=== PATIENT | male | born 1965 | race Caucasian/White ===

== ENCOUNTER 2020-09-21 19:25 | Emergency (ER) | payer OTHER, SELFPAY ==
[2020-09-21 19:56] VITALS: BP 153/85; PULSE 86; RESP 18; TEMP 36.3; O2SAT 96; BMI 31.7
--- NOTE | 2020-09-21 20:26 | ED.BACK ---
HPI - Back Pain/Injury General Chief Complaint: Back Pain/Injury Stated Complaint: HIP PAIN Time Seen by Provider: 09/21/20 20:16 History of Present Illness HPI Narrative: Patient complains of right-sided back pain radiating to the groin area which happened several days ago at work on Sunday when he was lifting heavy objects at work and felt a pain in the right side of his back which has gotten worse over the last several days No numbness weakness or tingling no incontinence no fever no dysuria no blood in the urine no abdominal pain no chest pain Related Data Previous Rx's Medication Instructions Recorded acetaminophen 1,000 mg PO QID PRN #30 tab 09/21/20 cyclobenzaprine 10 mg PO TID PRN #14 tab 09/21/20 ibuprofen 600 mg PO Q6H PRN #20 tab 09/21/20 lidocaine 1 patch TOPICAL DAILY #15 ea 09/21/20 oxycodone 5 mg PO Q6H PRN #14 tab 09/21/20 prednisone 60 mg PO DAILY 3 Days #9 tab 09/21/20 Allergies Allergy/AdvReac Type Severity Reaction Status Date / Time No Known Allergies Allergy Verified 09/21/20 19:55 [No Known Allergies*] Review of Systems Review of Systems: Positive for right-sided back pain radiating to the groin Negatives are no fever no chills any dizziness or weakness no fainting no feeling faint no chest pain no abdominal pain no burning with urination or frequency of urination no incontinence no changes to bowel or bladder no skin rash no numbness weakness or tingling Yes all other systems are reviewed and are negative PMFSH Past Medical History Source: nursing notes reviewed Social History Social History Advance Directives: No Physical Exam Vital Signs: Vital Signs: Last Vital Signs Temp 97.3 F 09/21/20 19:56 Pulse 81 09/21/20 21:08 Resp 14 09/21/20 21:08 BP 124/85 09/21/20 21:08 Pulse Ox 98 09/21/20 21:08 Body Mass Index 31.7 General appearance is no acute distress Head is normocephalic atraumatic Neck is supple and nontender The chest is clear to auscultation bilaterally Heart no murmur Abdomen soft nontender Extremities full range of motion x4 Back exam there is right lower lumbar paraspinal tenderness, there is no CVA tenderness there is no focal bony tenderness, all skin is normal there is no redness no warmth no swelling no wound no rash Pain is easily reproduced with movement Neuro no focal motor or sensory deficit Skin no rash Course Course Course Narrative: Patient is treated for musculoskeletal back pain that started with an injury at work and will follow with work connection or primary doctor Discharge Plan Discharge Clinical Impression: Strain of lumbar region Patient Disposition: Home, Self-Care Additional Instructions: Follow with work connection for work related injury Chiropractor and or physical therapy are often helpful, massages often help We are trying prednisone which helps sometimes with pinch nerve pain that radiates to other parts of the body by reducing inflammation Return any time any worse condition or any concerns Prescriptions: New oxycodone 5 mg tablet 5 mg PO Q6H PRN (Reason: pain) Qty: 14 RF: 0 prednisone 20 mg tablet 60 mg PO DAILY 3 Days Qty: 9 RF: 0 lidocaine 5 % adhesive patch,medicated 1 patch topical DAILY Qty: 15 RF: 0 acetaminophen 500 mg tablet 1,000 mg PO QID PRN (Reason: pain) Qty: 30 RF: 0 ibuprofen 600 mg tablet 600 mg PO Q6H PRN (Reason: pain) Qty: 20 RF: 0 cyclobenzaprine 5 mg tablet 10 mg PO TID PRN (Reason: muscle spasm) Qty: 14 RF: 0 Referrals: [facility] [Provider Group] - 2 days (Back injury from lifting at work) Stand Alone Forms: Work/School Release Interventions: ED Discharge Assessment Last Done: 09/21/20 21:18 Discharge Date/Time: 09/21/20 21:21
[2020-09-21] MEDS: Acetaminophen 325 MG TABLET 975 MG PO (20:46)
[2020-09-21] MEDS: oxyCODONE HCl Immed Release 5 MG TABLET 10 MG PO (20:46)
[2020-09-21] MEDS: Cyclobenzaprine HCl 10 MG TABLET PO (20:47)
[2020-09-21] MEDS: predniSONE 20 MG TABLET 60 MG PO (20:47)
[2020-09-21] MEDS: Ketorolac Tromethamine 30 MG/ML VIAL IM (20:47)
[2020-09-21 21:08] VITALS: BP 124/85; PULSE 81; RESP 14; O2SAT 98
== END 2020-09-21 21:21 | disposition home or self-care (01) ==
PROVIDERS: Emergency Provider Emergency Medicine
DX: S39.012A Strain of muscle, fascia and tendon of lower back, initial encounter (principal); X50.0XXA Overexertion from strenuous movement or load, initial encounter; Y93.9 Activity, unspecified; Y92.89 Other specified places as the place of occurrence of the external cause; Y99.0 Civilian activity done for income or pay
CPT/HCPCS: 96372; 99284; J1885

== ENCOUNTER 2021-05-04 09:06 | Outpatient (REF) | payer OTHER, SELFPAY ==
--- NOTE | ~2021-05-04 | XR_ITS ---
EXAMINATION: XR KNEE, LEFT CLINICAL INFORMATION: Left knee pain COMPARISON: None TECHNIQUE: Four views of the left knee. FINDINGS: There is no evidence of acute fracture or dislocation of the left knee. No significant left knee effusion is appreciated. Joint spaces are maintained. There is some spurring undersurface of the patella. There is a patella spur site of insertion of the quadriceps tendon. XR/XR knee LT 4V IMPRESSION: Mild degenerative change of the patellofemoral joint. No acute fracture, dislocation, or effusion identified.
== END 2021-05-04 09:07 | disposition home or self-care (01) ==
LOC: HO.HMGCX 09:06
PROVIDERS: Visit Provider Family Medicine
DX: M25.562 Pain in left knee (principal)
CPT/HCPCS: 73564

== ENCOUNTER 2021-06-20 17:00 | Outpatient (RCR) | payer OTHER, SELFPAY ==
[2021-05-11 10:09] VITALS: BP 118/80; PULSE 87
--- NOTE | 2021-05-11 12:02 | MHC.PT.EP ---
[facility] [place] Office [place] Office [place] Office [address] Kyle Lezama [address] [phone] F: [phone] F: [phone] F: [phone] F: [phone] Physical Therapy Plan of Care Date of Evaluation: Date of Surgery: NA Diagnosis: Sprain of unspecified site of L knee, initial encounter Assessment: Osbaldo is a 55 year old male who is referred to PT for Sprain of unspecified site of L knee, initial encounter . Pt sustained the injury at work about 10 days back, twisted his knee on planted foot. On PT examination he presented with mild swelling, TTP along inferior border of patella, 6/10 pain with stairs, walking, knee bending, and standing, decreased knee ROM, decreased knee and hip muscle strength, altered posture, balance and gait. Due to these impairments he has difficulty dressing his lower body, walking, stair negotiation and performing work activities. He would benefit from skilled PT to address the aforementioned impairments and improve tolerance to functional activities. Frequency and Duration: The patient will be seen 2/week for 5 weeks. Short Term Goals: 1. Pt will have 50% decrease in pain which will enable him to stand to clean dishes in 2 weeks. 2. Pt will be able to move knee through full plane of motion without pain which will enable him to dress his lower body in 3 weeks Fdc Goals: 1. Pt will demonstrate an increase in muscle strength by 1 grade which will enable to to walk and negotiate stairs in 4 weeks. 2. Pt will be independent with HEP and return to PLOF in 5 weeks. Treatment Plan: Modalities to reduce pain, spasms and effusion. Manual therapy to restore motion and function. Therapeutic exercise to improve strength and flexibility. Neuromuscular re-education for posture and balance. Therapeutic activities to return to functional activities of daily living. Electronically signed by: Maribel Aldridge PT DPT Please sign and return to therapist. Thank you for your referral.
--- NOTE | 2021-06-21 15:41 | MHC.PT.DC ---
[facility] [place] Office [place] Office [place] Office [address] Kyle Lezama [address] [phone] F: [phone] F: [phone] F: [phone] F: [phone] Physical Therapy Discharge Report Diagnosis: Sprain of unspecified site of L knee, initial encounter Date of Surgery: NA Date of Evaluation: 05/11/21 Date of Discharge: 06/21/21 Treatments to Date: 10 Cancellations to Date: 0 No Shows to Date: 0 Discharge Status: Improved Function Independent with HEP Discharge Summary: Osbaldo has completed 10 PT visits and has shown improvement in his symptoms. He is independent with HEP as well. He is therefore being d/c from PT. Electronically signed by: Maribel Aldridge PT DPT Please sign and return to therapist. Thank you for your referral.
== END 2021-06-21 15:43 | disposition home or self-care (01) ==
LOC: HO.PT 17:00
PROVIDERS: Visit Provider Family Medicine
DX: S83.92XD Sprain of unspecified site of left knee, subsequent encounter (principal)
CPT/HCPCS: 97110; 97112; 97140; 97161; 97530

== ENCOUNTER 2023-06-13 08:07 | Outpatient (AMB) | payer OTHER, SELFPAY ==
[2023-06-13 08:22] VITALS: BP 122/76; PULSE 78; TEMP 36.7; O2SAT 98; BMI 31.2
--- NOTE | 2023-06-13 08:25 | MHC.OFFWIV ---
Intake Vital Signs 06/13/23 08:22 Height 5 ft 9 in Weight 211 lb BMI 31.2 BP 122/76 Blood Pressure Location Lt brachial Position Sitting Pulse 78 Pulse Source Pulse Oximeter Temp 98.0 F Temp Source Oral Pulse Oximetry (%) 98 Intake Visit Reasons: EP Rash Intake Note: pt is here for c/o rash under left arm/chest, spread to back. pt states hes had it for 2 days, states its itchy Patient Tobacco Use Status: Never used Tobacco Allergies No Known Allergies [No Known Allergies*] Allergy (Verified 06/13/23 08:24) HPI HPI Comments History of Present Illness Details 57 y/o male patient who presents to walk in clinic with c/o Rash x 2 days. Reports that rash is located left sided chest spreading to the mid back. Reports that rash is Itchy, and painful. PFSH Surgical History (Updated 05/04/21 @ 08:10 by Karly Feliciano CMA) H/O shoulder surgery Family History (Updated 05/04/21 @ 08:11 by Karly Feliciano CMA) Father Lung cancer Mother Lung cancer Social History (Updated 05/04/21 @ 08:11 by Karly Feliciano CMA) Household Members: Spouse Housing: House Alcohol intake: current Alcohol intake frequency: a few times a week Alcohol type: beer Patient Tobacco Use Status: Never used Tobacco Review of Systems Const All systems reviewed & are unremarkable except as noted in HPI and below Physical Exam Vital Signs: Last Vital Signs Temp 98.0 F 06/13/23 08:22 Pulse 78 06/13/23 08:22 BP 122/76 06/13/23 08:22 Pulse Ox 98 06/13/23 08:22 BMI result Body Mass Index 31.2 Const General: comfortable and no acute distress Orientation/consciousness: patient oriented x3 Skin General skin exam: erythema Rashes: rashes noted (Small vesicles on the left sided trunk along a thoracic dermatome, erythema) Neuro General: patient oriented x3, gait normal and moves all extremities Psych Affect: normal affect Attitude: cooperative Assessment & Plan Assessment & Plan (1) Rash: Code(s): R21 - Rash and other nonspecific skin eruption Plan: DDx's: Shingles vs Dermatitis Will Tx with Valtrex today. Exam consistent with Shingles. Medications: New valacyclovir (Valtrex) 1,000 mg PO BID 7 days 14 tabs 0RF R21 - Rash and other nonspecific skin eruption Coding Level of Care Code Est Pt Level 3 (60500) Diagnoses Rash R21 Time Spent (min) 15
== END 2023-06-13 08:38 | disposition home or self-care (01) ==
PROVIDERS: Visit Provider Nurse Practitioner Family
DX: R21 Rash and other nonspecific skin eruption (principal)
CPT/HCPCS: 99213

== ENCOUNTER 2024-02-11 17:34 | Day surgery (SDC) | payer OTHER, SELFPAY ==
--- NOTE | ~2024-02-11 | FL_ITS ---
EXAMINATION: FLUOROSCOPY GUIDANCE FOR NEEDLE PLACEMENT CLINICAL INFORMATION: Left stent COMPARISON: None available. TECHNIQUE: Fluoroscopy and digital spot fluoroscopy. FINDINGS: Digital spot images demonstrate sequential images with deployment of a left nephroureteral stent. Partial visualization is made of contrast within the left ureter. FLUOROSCOPY TIME: 52.8 seconds DOSE 21.30 mGY FL/FL guidance in OR IMPRESSION: Intraprocedural fluoroscopic visualization as detailed above. Electronically signed by: José Manuel Briceño MD 02/13/2024 04:42 AM MIGUELITO LER[facility]
--- NOTE | ~2024-02-11 | CT_ITS ---
EXAMINATION: CT LUMBAR SPINE WITHOUT CONTRAST CLINICAL INFORMATION: Low back pain. COMPARISON: CT abdomen/pelvis 03/05/2016. TECHNIQUE: Contiguous axial imaging was performed of the lumbar spine without intravenous administration of contrast. Coronal and sagittal reformats were obtained at the acquisition workstation. This CT examination was performed using dose optimization techniques as appropriate, variously including the following: *Automated exposure control *Adjustment of mA and/or kV according to patient size (this includes techniques or standardized protocols for targeted exams where dose is matched to indication/reason for exam; i.e. extremities or head) *Use of iterative reconstruction technique DLP; 565 mGy-cm FINDINGS: No acute compression deformity or subluxation. No aggressive appearing osseous lesions. Mild to moderate multilevel intervertebral disc height loss and mild multilevel facet arthropathy with some degree of neural foraminal encroachment at the L4-S1 levels. [id number] diffuse central spinal canal stenosis. Of note, CT is insensitive for evaluation of the spinal canal in the absence of intrathecal contrast. SI joints are symmetric. No significant paraspinal soft tissue abnormality is seen. Incidentally noted moderate left-sided hydroureteronephrosis with a 5 x 3 mm obstructive ureteric calculus at the level of L4 measuring 6 cm 79 Hounsfield units. Additional nonobstructive calculus measuring 6 mm in the lower pole of the left kidney. CT/CT lumbar spine wo IV con IMPRESSION: 1. Moderate left-sided hydroureteronephrosis with a 5 x 3 mm obstructive ureteric calculus at the level of L4. Additional nonobstructive calculus in the lower pole of the left kidney. 2. No acute compression deformity or subluxation. 3. Mild to moderate multilevel degenerative changes of the lumbar spine. Electronically signed by: Calista Abdul MD 02/11/2024 09:32 PM [facility] [place]
[2024-02-11 18:11] VITALS: BP 146/95; PULSE 81; RESP 20; TEMP 37.2; O2SAT 96; BMI 30.3
--- NOTE | 2024-02-11 18:22 | ED_ITS ---
HPI - General Adult General Chief complaint: Abdominal Pain Stated complaint: back pain Time Seen by Provider: 02/11/24 19:11 Source: patient Mode of arrival: ambulatory Limitations: no limitations History of Present Illness ED Provider: preet painter NP HPI narrative: Patient is a 58-year-old male who presents emergency department for evaluation of left-sided back pain. Onset around approximately 17:30, has progressively worsened. He was attempting to get out of his truck after a drive home about 40 minutes prior to arrival to emergency department and he felt the pain becoming more excruciating. He has vomited twice since the onset of pain and arrived diaphoretic. He appears significantly uncomfortable at the time my evaluation. He does admit to a history of kidney stones but states that this feels more severe than he has experienced in the past. Denies recent precipitating injury, fevers, chills, chest pain, shortness of breath, burning with micturition, urinary frequency/urgency/hesitancy, hematuria, bladder or bowel dysfunction, numbness or tingling of the perineum or bilateral legs. Denies any recent surgical procedures, any known immune compromising conditions, personal history of cancer, or IV drug usage. Related Data Previous Rx's ?Medication ?Instructions ?Recorded acetaminophen 500 mg tablet 1,000 mg (2 x 500 mg) PO QID PRN 09/21/20 pain #30 tabs ibuprofen 600 mg tablet 600 mg PO Q6H PRN pain #20 tabs 05/04/21 valacyclovir 1 gram tablet 1,000 mg PO BID 7 days #14 tabs 06/13/23 (Valtrex) Allergies Allergy/AdvReac Type Severity Reaction Status Date / Time No Known Allergies Allergy Verified 02/11/24 18:13 [No Known Allergies*] Review of Systems 2 Review of Systems: Yes all other systems are reviewed and are negative PMFSH Past Medical History Attestation statement: The following information was validated with the patient. Source: old records reviewed Surgical History H/O shoulder surgery Family History Family History (Updated 05/04/21 @ 08:11 by Karly Feliciano CMA) Father Lung cancer Mother Lung cancer Social History Social History (Updated 05/04/21 @ 08:11 by Karly Feliciano, AUTOMOTIVE SALES SPECIALIST) Household Members: Spouse Housing: House Are you a primary in home caregiver to a significant other at home: No Do you presently have visiting nurse or other home services: No Alcohol intake: current Alcohol intake frequency: a few times a week Alcohol type: beer Comment: PACU Patient Tobacco Use Status: Never used Tobacco Physical Exam ED Vital Signs: Vital Signs - 24 hr 02/11/24 18:11 02/11/24 19:58 02/11/24 20:09 Temperature 98.9 F 98.3 F Pulse Rate 81 75 Respiratory Rate 20 22 H 16 Blood Pressure 146/95 H 145/102 H Pulse Oximetry 96 96 Oxygen Delivery Method Room Air Room Air 02/11/24 22:35 02/12/24 05:31 02/12/24 08:00 Temperature 98.0 F 98.0 F 98.1 F Pulse Rate 78 98 83 Respiratory Rate 16 16 16 Blood Pressure 120/78 105/46 L 117/75 Pulse Oximetry 97 94 97 Oxygen Delivery Method Room Air Room Air Room Air 02/12/24 15:05 Temperature 98.8 F Pulse Rate 89 Respiratory Rate 14 Blood Pressure 126/79 Pulse Oximetry 96 Oxygen Delivery Method Room Air BMI result Body Mass Index 30.3 Appearance: Alert.?Oriented to person, place and time. No acute distress.?Normal affect. Eyes: Pupils equal, round and reactive to light.? ENT: Pharynx normal.?? Neck: Normal inspection.? Neck supple.?? CVS: Heart sounds normal. Normal heart rate and rhythm.? Pulses normal; bilateral radial pulses 2+, bilateral posterior tibial/dorsalis pedis pulses 2+.? Respiratory: No respiratory distress.? Lung sounds clear to auscultation bilaterally?? Abdomen: Soft and non-tender. Normoactive bowel sounds. No pulsatile mass.?? Skin: Skin warm and dry.? Normal skin color.? Normal skin turgor.?? Extremities: No lower extremity edema.? No calf ttp? Back: Positive left CVA tenderness. No midline spinal tenderness, step-off's, or deformity. Full ROM intact in bilateral lower extremities. No rashes, lesions, areas of induration or fluctuance, or signs of infection noted., Neuro: Moves all extremities spontaneously. 5/5 strength in hip extension/flexion, abduction, adduction. Sensation to light touch intact bilaterally. Patellar and Achilles reflex 2+ bilaterally. No ataxia, gait normal and steady.. No focal neuro deficits. Course Course Course Narrative: RME performed by Shirley Zacarias PA-C. Patient is a 58 year old assigned male at presenting to the emergency department with severe low back pain. Detailed physical exam and review of systems are deferred to the triage clinician. Labs and imaging ordered. Patient placed back in the waiting room pending room availability and results. Reevaluation(s) Reevaluation #1: CT of the abdomen and pelvis revealing a 5 X 3 obstructive ureteral calculi on the left with moderate hydroureternephrosis as well as a 6 mm nonobstructive calculus in the lower pole of the left kidney. These findings were discussed with patient. Still has not had significant resolution in pain though he did endorse some improvement after initial dose morphine. At this time will provide a 2nd dose of morphine in addition to Toradol, starting on Flomax. Time: 21:51 Reevaluation #2: Patient was up and ambulatory, tolerating oral intake. Ambulated to the bathroom provided a urinalysis which is without evidence of infection. Reports improvement in pain Time: 00:00 Reevaluation #3: Endorsing increasing in in pain, having worsening intensity, wants to avoid additional dose of medication at this time. He does not feel as though he can return home due to the degree of pain. With any movement he is very uncomfortable. I will consult with Urology Time: 00:27 Additional Reevaluation(s): 01:02 Spoke with Urology, Dr. Judd, he advises that he will evaluate patient in the morning. Patient placed in physician observation at 01:02 pending evaluation from Urology. Vital signs stable. Patient aware of plan of care. Patient signed out to ED attending Dr. Prabhakar Medications Administered Generic Name Dose Route Start Last Admin Trade Name Freq PRN Reason Stop Dose Admin Lactated Ringer's 1,000 mls @ 50 mls/hr 02/12/24 15:30 02/12/24 15:24 Lr IVCONT 50 mls/hr .Q20H CARON Administration Discontinued Medications Generic Name Dose Route Start Last Admin Trade Name Freq PRN Reason Stop Dose Admin Ketorolac Tromethamine 15 mg 02/11/24 21:51 02/11/24 22:05 Ketorolac Tromethamine 15 Mg/Ml Vial IVPUSH 02/11/24 21:52 15 mg ONCE ONE Administration Morphine Sulfate 4 mg 02/11/24 19:21 02/11/24 19:58 Morphine Sulfate 4 Mg/Ml Cartridge IVPUSH 02/11/24 19:22 4 mg ONCE ONE Administration Protocol Morphine Sulfate 4 mg 02/11/24 21:51 02/11/24 22:05 Morphine Sulfate 4 Mg/Ml Cartridge IVPUSH 02/11/24 21:52 4 mg ONCE ONE Administration Protocol Ondansetron HCl 4 mg 02/11/24 19:21 02/11/24 19:58 Ondansetron Hcl 4 Mg/2 Ml Vial IVPUSH 02/11/24 19:22 4 mg ONCE ONE Administration Tamsulosin HCl 0.4 mg 02/11/24 21:58 02/11/24 22:05 Tamsulosin Hcl 0.4 Mg Capsule PO 02/11/24 21:59 0.4 mg ONCE ONE Administration Medical Decision Making Medical Decision Making [facility] Narrative: Patient is a 58-year-old male who presents emergency department for evaluation of left-sided back pain with onset this evening progressively worsening as per HPI. At the time my initial evaluation here significantly uncomfortable, has positive left CVAT no midline pain. Concern at this time for nephrolithiasis/obstructive calculi versus lumbar strain, can not completely exclude herniated disc. On neurological exam there are no deficits. Atraumatic in nature, no acute bony tenderness, unlikely to be spinal fracture. No recent fevers, unintentional weight loss, history of IVDA, high-risk past medical history, immunosuppression, recent surgery or lumbar puncture to suggest spinal infection, epidural abscess, malignancy. Not consistent with AAA or dissection. No radiation of pain to the testicular region to suggest testicular torsion. No associated diarrhea/constipation, hematochezia melena, or left lower quadrant abdominal pain to suggest diverticulitis. CT of the abdomen and pelvis obtained for further evaluation Differential Diagnosis Differential Diagnoses: The differential diagnosis associated with the presentation includes ( see narrative above) Admission/Observation Consideration of admission/observation: Escalation of care including admission/observation considered ( see narrative above) Lab Data [facility] Lab Attestation statement: I reviewed the patient's lab results. CBC without leukocytosis anemia or thrombocytopenia. No electrolyte derangement. No ADRIÁN. Urinalysis without evidence of infection. 02/11/24 18:36 02/11/24 18:36 Labs: Lab Results 02/11/24 02/11/24 Range/Units 18:36 23:46 WBC 9.7 (4.8-10.8) X10*3/uL RBC 4.97 (4.60-5.80) X10*6/uL Hgb 16.0 (14.0-18.0) g/dl Hct 45.3 (42.0-52.0) % MCV 91.1 (80.0-98.0) fL MCH 32.2 (27.0-33.0) pg MCHC 35.3 (31.0-36.0) g/dl RDW 12.4 (11.0-16.0) % Plt Count 184 (160-400) X10*3/uL MPV 9.3 L (9.4-12.4) fL Immature Gran % (Auto) 0.2 (0.0-0.4) % Neut % (Auto) 63.2 (45-73) % Lymph % (Auto) 28.4 (20-40) % Starr % (Auto) 6.3 (2-11) % Eos % (Auto) 1.5 (0-4) % Baso % (Auto) 0.4 (0-2) % Lymph # (Auto) 2.8 (1.2-4.9) X10*3/uL Starr # (Auto) 0.6 (0.1-1.2) X10*3/uL Eos # (Auto) 0.2 (0.0-0.4) X10*3/uL Baso # (Auto) 0.0 (0.0-0.2) X10*3/uL Abs Immat Gran (auto) 0.02 (0.00-0.03) X10*3/uL Absolute Neuts (auto) 6.1 (2.0-8.3) x10*3/uL Absolute Nucleated RBC 0.000 (0.0-0.012) X10*3/uL Nucleated RBC % (auto) 0.0 (0.0-0.2) /100WBC Sodium 142 (135-145) mmol/L Potassium 4.8 (3.3-5.1) mmol/L Chloride 106 (96-108) mmol/L Carbon Dioxide 26 (22-29) mmol/L Anion Gap 15 (12-20) BUN 20 H (9-16) mg/dL Creatinine 1.13 (0.5-1.4) mg/dL Estim Creat Clear Calc 79.7 Estimated GFR > 60 Random Glucose 141 H (60-115) mg/dL Calcium 10.4 H (8.4-10.2) mg/dL Magnesium 2.1 (1.6-2.6) mg/dL Total Bilirubin 0.6 (0.0-1.0) mg/dL AST 35 (5-37) U/L ALT 38 (0-40) U/L Alkaline Phosphatase 46 (39-117) U/L Total Protein 8.0 (6.5-8.0) g/dL Albumin 4.7 (3.5-5.0) g/dL Urine Color Dark Yellow Urine Appearance Clear Urine pH 6.5 (5.0-9.0) Ur Specific [place] 1.025 (1.005-1.025) Urine Protein 30 (1+) H (Neg-Trace) mg/dL Urine Glucose (UA) Negative (Negative) mg/dL Urine Ketones 40 (Negative) mg/dL Urine Blood Large (3+) H (Negative) Urine Nitrite Negative (Negative) Ur Leukocyte Esterase Trace H (Negative) Urine RBC >20 H (0-2) /HPF Urine WBC 0-5 (0-5) /HPF Ur Squamous Epith Cells 0-2 (0-2) /HPF Urine Bacteria None Seen (None Seen) Hyaline Casts 0-2 (0-2) /LPF Independent Interpretation I performed an independent interpretation of an: CT Scan (Left nephrolithiasis/ureteral calculi) Radiology Impression Discussion of test interpretation with radiology: I have reviewed the radiologist's reading. Radiologist Impression: CT/CT lumbar spine wo IV con IMPRESSION: 1. Moderate left-sided hydroureteronephrosis with a 5 x 3 mm obstructive ureteric calculus at the level of L4. Additional nonobstructive calculus in the lower pole of the left kidney. 2. No acute compression deformity or subluxation. 3. Mild to moderate multilevel degenerative changes of the lumbar spine. Independent Historian Clinical information obtained from an independent historian. History obtained from or confirmed by: Spouse External Record Review External record reviewed: Outpatient record Prescription Management I considered prescription management with: Pain Medication Critical Care Time Critical Care Time Critical Care Time: Yes Total Critical Care Time: 45 Attestation: I personally attest to this critical care time spent taking care of the patient exclusive of all other billable procedures was approximately 45 minutes including initial evaluation of patient, ordering tests, CT interpretation, morphine IV and re-evaluation, medical consultation, documentation, re- evaluation. Discharge Plan Discharge Clinical Impression: Hydronephrosis with urinary obstruction due to ureteral calculus Patient Disposition: Still a Patient Prescriptions: No Action acetaminophen 500 mg tablet 1,000 mg PO QID PRN (Reason: pain) Qty: 30 0RF ibuprofen 600 mg tablet 600 mg PO Q6H PRN (Reason: pain) Qty: 20 0RF valacyclovir [Valtrex] 1 gram tablet 1,000 mg PO BID 7 Days Qty: 14 0RF Interventions: Admission Worksheet (ED) Last Done: 02/12/24 14:37 Discharge Date/Time: 02/12/24 14:53 Print Language: Citizen Of [place]
--- NOTE | 2024-02-11 18:25 | ECG_ITS ---
Test Reason : diaphoresis Blood Pressure : / mmHG Vent. Rate : 067 BPM Atrial Rate : 067 BPM P-R Int : 142 ms QRS Dur : 102 ms QT Int : 388 ms P-R-T Axes : 075 -20 053 degrees QTc Int : 409 ms Normal sinus rhythm Normal ECG No previous ECGs available Referred By: Shirley Zacarias Electronically Signed By:Cricket Marquez
[2024-02-11 18:40] LABS: MANUAL DIFF FLAG NO
[2024-02-11 18:43] LABS: Basophils Percent Auto 0.4 % (0-2); Eosinophils Absolute Auto 0.2 X10*3/uL (0.0-0.4); Eosinophils Percent Auto 1.5 % (0-4); Hematocrit 45.3 % (42.0-52.0); Imm Gran Abs Auto 0.02 X10*3/uL (0.00-0.03); Imm Gran Pct Auto 0.2 % (0.0-0.4); Lymphocytes Absolute Auto 2.8 X10*3/uL (1.2-4.9); Lymphocytes Percent Auto 28.4 % (20-40); Mean Corpuscular HGB Conc 35.3 g/dl (31.0-36.0); Mean Corpuscular Hemoglobin 32.2 pg (27.0-33.0); Mean Corpuscular Volume 91.1 fL (80.0-98.0); Mean Platelet Volume 9.3 fL (9.4-12.4); Monocytes Absolute Auto 0.6 X10*3/uL (0.1-1.2); Monocytes Percent Auto 6.3 % (2-11); Neutrophils Absolute Auto 6.1 x10*3/uL (2.0-8.3); Neutrophils Percent Auto 63.2 % (45-73); Platelet Count 184 X10*3/uL (160-400); Red Blood Count 4.97 X10*6/uL (4.60-5.80); Red Cell Distribution Width 12.4 % (11.0-16.0); White Blood Count 9.7 X10*3/uL (4.8-10.8)
[2024-02-11 18:58] LABS: Alanine Aminotransferase 38 U/L (0-40); Albumin Level 4.7 g/dL (3.5-5.0); Alkaline Phosphatase 46 U/L (39-117); Anion Gap 15 (12-20); Aspartate Amino Transferase 35 U/L (5-37); Bilirubin Total 0.6 mg/dL (0.0-1.0); Blood Urea Nitrogen 20 mg/dL (9-16); Calcium 10.4 mg/dL (8.4-10.2); Carbon Dioxide 26 mmol/L (22-29); Chloride 106 mmol/L (96-108); Creatinine Clr Calc Pharmacy 79.7; Estimated Glomerular Filt Rate > 60; Glucose Random 141 mg/dL (60-115); Magnesium 2.1 mg/dL (1.6-2.6); Potassium 4.8 mmol/L (3.3-5.1); Sodium 142 mmol/L (135-145)
[2024-02-11 19:58] VITALS: RESP 22
[2024-02-11] MEDS: ondansetron HCL 4 MG/2 ML VIAL IVPUSH (19:58)
[2024-02-11] MEDS: Morphine Sulfate 4 MG/ML CARTRIDGE IVPUSH ×2 (19:58→22:05)
[2024-02-11 20:09] VITALS: BP 145/102; PULSE 75; RESP 16; TEMP 36.8; O2SAT 96
[2024-02-11] MEDS: Tamsulosin HCL 0.4 MG CAPSULE PO (22:05)
[2024-02-11] MEDS: Ketorolac Tromethamine 15 MG/ML VIAL IVPUSH (22:05)
[2024-02-11 22:35] VITALS: BP 120/78; PULSE 78; RESP 16; TEMP 36.7; O2SAT 97
[2024-02-11 23:55] LABS: Appearance Urine Clear; Color Urine Dark Yellow; Glucose Urine UA Negative (Negative); Leukocyte Esterase Urine Trace (Negative); Nitrite Urine Negative (Negative); PH 6.5 (5.0-9.0); Specific Gravity - Urine 1.025 (1.005-1.025); UMIC TRIGGER UACC YES; Urine Blood Large (3+) (Negative); Urine Ketones 40 mg/dL (Negative); Urine Protein 30 (1+) mg/dL (Neg-Trace)
[2024-02-11 23:57] LABS: Bacteria Urine None Seen (None Seen); Hyaline Casts Urine 0-2 /LPF (0-2); RBC Urine >20 /HPF (0-2); Squamous Epithelial Cell Urine 0-2 /HPF (0-2); WBC Urine 0-5 /HPF (0-5)
[2024-02-12] VITALS (7 sets, daily range): BP systolic 105–149; BP diastolic 46–87; PULSE 83–98; RESP 14–18; TEMP 36.3–37.1; O2SAT 94–98
--- NOTE | 2024-02-12 08:17 | P.CNUR_ITS ---
History of Present Illness Consult details Consult date: 02/12/24 Narrative: CC: Left upper ureteric stone 58yr male Present to ER with left sided flank pain Rapid onset and progressive Pain to 8/10 Associated vomiting and nausea Prior history of stones CT - Moderate left-sided hydroureteronephrosis with a 5 x 3 mm obstructive ureteric calculus at the level of L4 Plan cysto, left stent placement Review of Systems 2 Constitutional: Constitutional: Reports as per HPI and Reports no additional constitutional complaints Cardiovascular: Cardiovascular: Reports as per HPI and Reports no additional cardiovascular complaints Respiratory: Respiratory: Reports as per HPI and Reports no additional respiratory complaints Gastrointestinal: Gastrointestinal: Reports as per HPI and Reports no additional gastrointestinal complaints Genitourinary: Genitourinary: Reports as per HPI Musculoskeletal: Musculoskeletal: Reports no additional musculoskeletal complaints and Reports as per HPI Neurologic: Reports system reviewed and no additional complaints, except as documented and Reports as per HPI PMFSH Family History Family History (Updated 05/04/21 @ 08:11 by Karly Feliciano CMA) Father Lung cancer Mother Lung cancer Surgical History Surgical History H/O shoulder surgery Social History Social History (Updated 05/04/21 @ 08:11 by Karly Feliciano CMA) Household Members: Spouse Housing: House Alcohol intake: current Alcohol intake frequency: holidays/special occasions only Alcohol type: beer Patient Tobacco Use Status: Never used Tobacco Smoked in Last 30 Days: No Use of substances other than those prescribed or required for medical reasons: No Advance Directives: No Advance Directives Information Provided: No Do you have a plan to hurt others: No Plan Meds Allergies Allergy/AdvReac Type Severity Reaction Status Date / Time No Known Allergies Allergy Verified 02/11/24 18:13 [No Known Allergies*] Active Medications: Current Medications Hydromorphone HCl (Hydromorphone Hcl 1 Mg/Ml Syringe) 1 mg IVPUSH Q3H PRN; Protocol PRN Reason: Pain, Severe (Pain Scale 7-10) Physical Exam 2 Vital Signs: Vital Signs: Last Vital Signs Temp 98.1 F 02/12/24 08:00 Pulse 83 02/12/24 08:00 Resp 16 02/12/24 08:00 BP 117/75 02/12/24 08:00 Pulse Ox 97 02/12/24 08:00 O2 Del Method Room Air 02/12/24 08:00 BMI result Body Mass Index 30.3 Const: General: cooperative, healthy appearing, comfortable and no acute distress Orientation/consciousness: patient oriented x3 HEENT: Face and sinus: Yes normal facial exam Mouth: moist mucous membranes Neck: Neck: Yes normal visual inspection, Yes full ROM and Yes trachea midline Chest: Chest palpation & inspection: normal inspection of the chest Resp: Effort & Inspection: normal respiratory effort, able to speak in complete sentences and no respiratory distress GI: Inspection: Yes normal to inspection Back/Spine/Pelvis: Cervical Spine: normal cervical lordosis Thoracic/Lumbar Spine: thoracic and lumbar spine normal to inspection Skin: General skin exam: no rashes or lesions noted Neuro: General: patient oriented x3, tone normal and moves all extremities Extrem: General: Yes normal to inspection and Yes capillary refill normal Results Labs 02/11/24 18:36 02/11/24 18:36 Labs: Abnormal lab results 02/11/24 02/11/24 Range/Units 18:36 23:46 MPV 9.3 L (9.4-12.4) fL BUN 20 H (9-16) mg/dL Random Glucose 141 H (60-115) mg/dL Calcium 10.4 H (8.4-10.2) mg/dL Urine Protein 30 (1+) H (Neg-Trace) mg/dL Urine Blood Large (3+) H (Negative) Ur Leukocyte Esterase Trace H (Negative) Urine RBC >20 H (0-2) /HPF Short CBC 02/11/24 Range/Units 18:36 WBC 9.7 (4.8-10.8) X10*3/uL Hgb 16.0 (14.0-18.0) g/dl Hct 45.3 (42.0-52.0) % Plt Count 184 (160-400) X10*3/uL BMP 02/11/24 18:36 Sodium 142 Potassium 4.8 Chloride 106 Carbon Dioxide 26 BUN 20 H Creatinine 1.13 Calcium 10.4 H Liver Function 02/11/24 Range/Units 18:36 Total Bilirubin 0.6 (0.0-1.0) mg/dL AST 35 (5-37) U/L ALT 38 (0-40) U/L Alkaline Phosphatase 46 (39-117) U/L Albumin 4.7 (3.5-5.0) g/dL Urine 02/11/24 Range/Units 23:46 Urine Color Dark Yellow Urine Appearance Clear Urine pH 6.5 (5.0-9.0) Ur Specific [place] 1.025 (1.005-1.025) Urine Protein 30 (1+) H (Neg-Trace) mg/dL Urine Glucose (UA) Negative (Negative) mg/dL All other labs normal. Assessment and Plan (1) Hydronephrosis with urinary obstruction due to ureteral calculus: Status: Acute Plan Risks, benefits and alternatives to therapy were discussed. These include but are not limited to infection, bleeding, damage to local organs and tissues, need for further interventions. Anesthetic risks regarding cardiac arrhythmia, blood clots, and potential mortality were discussed. The patient understands the typical recovery time and the outpatient nature of the procedure. After consideration of these risks the patient gives full informed consent and they wish to move ahead with the procedure. - cysto with left stent placement Procedures Date of Service Date of Service: 02/12/24
--- NOTE | 2024-02-12 10:26 | PC.NURSE ---
Called to pre-op this morning to find out more information about patient status and no current plan. patient states MD martinez told him 4pm to sx. Will continue to monitor and manage pain.
[2024-02-12] MEDS: Lactated Ringers 1,000 ML 50 ML IVCONT (15:24)
--- NOTE | 2024-02-12 15:38 | P.CONAN_ITS ---
HPI - Anesthesia Eval Consult details Narrative: 58-year-old male presenting for ureteral scope possible stent PMFSH Active Problems Active Problems: All Active Problems Hydronephrosis with urinary obstruction due to ureteral calculus (Acute) Left knee sprain (Acute) Left knee pain (Acute) Family History Family History Father Lung cancer Mother Lung cancer Family history of problems with anesthesia: No Surgical History Surgical History H/O shoulder surgery History of Problems with Anesthesia: No Social History Social History Household Members: Spouse Housing: House Are you a primary child care supervisor to a significant other at home: No Do you presently have visiting nurse or other home services: No Alcohol intake: current Alcohol intake frequency: a few times a week Alcohol type: beer Comment: PACU Patient Tobacco Use Status: Never used Tobacco Meds Allergies Allergy/AdvReac Type Severity Reaction Status Date / Time No Known Allergies Allergy Verified 02/11/24 18:13 [No Known Allergies*] Active Medications: Current Medications Lactated Ringer's (Lr) 1,000 mls @ 50 mls/hr IVCONT .Q20H CARON Last Admin: 02/12/24 15:24 Dose: 50 mls/hr Exam Height,Weight and Vital Signs: Height 5 ft 8 in Weight 199 lb 4.766 oz Last Vital Signs Temp 98.8 F 02/12/24 15:05 Pulse 89 02/12/24 15:05 Resp 14 02/12/24 15:05 BP 126/79 02/12/24 15:05 Pulse Ox 96 02/12/24 15:05 O2 Del Method Room Air 02/12/24 15:05 Pertinent Lab Results Pertinent Lab Results: Laboratory Tests 02/11/24 02/11/24 18:36 23:46 WBC 9.7 RBC 4.97 Hgb 16.0 Hct 45.3 MCV 91.1 MCH 32.2 MCHC 35.3 RDW 12.4 Plt Count 184 MPV 9.3 L Immature Gran % (Auto) 0.2 Neut % (Auto) 63.2 Lymph % (Auto) 28.4 [place] % (Auto) 6.3 Eos % (Auto) 1.5 Baso % (Auto) 0.4 Lymph # (Auto) 2.8 [place] # (Auto) 0.6 Eos # (Auto) 0.2 Baso # (Auto) 0.0 Abs Immat Gran (auto) 0.02 Absolute Neuts (auto) 6.1 Absolute Nucleated RBC 0.000 Nucleated RBC % (auto) 0.0 Sodium 142 Potassium 4.8 Chloride 106 Carbon Dioxide 26 Anion Gap 15 BUN 20 H Creatinine 1.13 Estim Creat Clear Calc 79.7 Estimated GFR > 60 Random Glucose 141 H Calcium 10.4 H Magnesium 2.1 Total Bilirubin 0.6 AST 35 ALT 38 Alkaline Phosphatase 46 Total Protein 8.0 Albumin 4.7 Urine Color Dark Yellow Urine Appearance Clear Urine pH 6.5 Ur Specific [place] 1.025 Urine Protein 30 (1+) H Urine Glucose (UA) Negative Urine Ketones 40 Urine Blood Large (3+) H Urine Nitrite Negative Ur Leukocyte Esterase Trace H Urine RBC >20 H Urine WBC 0-5 Ur Squamous Epith Cells 0-2 Urine Bacteria None Seen Hyaline Casts 0-2 Airway Mallampati Class: II TM Dist: >3cm Neck ROM: Full Loose/Missing/Broken Teeth: No Assessment and Plan Assessment Anesthesia Assessment: Anesthesia Plan Discussed and Chart Reviewed Final Anesthetic Review Family History of Problems with Anesthesia: No History of Problems with Anesthesia: No NPO: Yes ASA Class: I Final Preanesthetic Review: No Changes in Pt Med Stat, Meds/Allgs Chart Reviewed, Consent Obtained/Reviewed and Anes Risks/Benef Reviewed Patient Risk: Low Procedure Risk: Low Anesthetic Plan Anesthetic Plan: GA Disposition: Standard PACU
--- NOTE | 2024-02-12 17:25 | MHC.SHP ---
Pre-Procedural Eval Section A - 24 Hr Update-Section A only Date of Service: 02/12/24 The patient is an INPATIENT: No The patient has been examined within 24 hours of the surgical procedure. The History & Physical has been completed within 30 days and I have reviewed it.: Yes Section B - Complete if H&P > 30 days Chief Complaint: back pain Allergies: Allergies Allergy/AdvReac Type Severity Reaction Status Date / Time No Known Allergies Allergy Verified 02/11/24 18:13 [No Known Allergies*] Plan Diagnosis/Plan: Unchanged I have reviewed the history and physical and performed a pertinent physical examination on my patient. No changes have occurred unless specified. Left ureteral stone. Plan for Cystoscopy, left ureteroscopy, possible laser lithotripsy, possible ureteral stent. Risks discussed included but not limited to, possible need to repeat procedure if stone is not completely fragmented, Irritative voiding symptoms, bladder spasms, urgency, blood in urine. Time Spent With Patient Time: Total time managing care of this patient today ____ minutes.
--- NOTE | 2024-02-12 18:53 | P.OP_ITS ---
Operative Note Operative Note Date of Service: 02/12/24 Narrative: PreOperative Diagnosis:?? Left ureteral stone, left hydronephrosis Post Operative Diagnosis:?? Left ureteral stone, left hydronephrosis Procedure: - Cystoscopy, left retrograde, left ureteroscopy, laser lithotripsy, stent insertion, 6 Brazilian by 22-32 cm Surgeon:?Dr Moe Lopes Anesthesia:? General Procedure: After informed consent was verified the patient was brought to the operating placed on the OR table in supine position.? General Anesthesia was administered per protocol.? The patient was placed in lithotomy position, prepped and draped in the usual sterile fashion.? Safety pause time-out and side of surgery confirmed.? Antibiotics confirmed. 2% lidocaine jelly 10 mL was passed transurethrally. A 22 Brazilian cystoscope was inserted transurethrally, the bulbous urethra was within normal limits. The prostatic urethra was nonobstructive. The bladder was visualized.? Both ureteric orifices were in normal position. An open-ended ureteral catheter was passed into the left ureteral orifice and a retrograde examination was performed. There was a filling defect in the proximal ureter and dilatation of the proximal ureter and renal pelvis and calices. A guidewire was passed through the ureteral catheter into the kidney. The balloon dilator size 12 fr x 4 cm was passed over the guide- wire the balloon was inflated to 10 mmHg and the intramural ureter was dilated for 45 seconds. The balloon was deflated and removed. After removing the balloon dilator a 2nd guidewire was then passed into the kidney to use as a safety. The cystoscope was removed, leaving both guidewires in place. One guidewire was used as the safety and was attached to the draping. The semi rigid ureteroscope was passed over one of the guidewires to the level of the stone in the ureter. One guidewire was then removed. Laser lithotripsy was started of the stone was done using the 220 fiber with a however due to the stone impacted along the ureter, laser lithotripsy was discontinued and a ureteral stent was placed. The ureteroscope was removed. The cystoscope was passed over the safety guidewire. A?6 Brazilian by 22-32 cm stent was placed into the ureter and renal pelvis under a combination of fluoroscopy and direct visualization. The bladder was emptied.? The rigid cystoscope was removed. ? The patient tolerated the procedure well and was brought to the recovery room in stable condition. Complications: None Drains: Ureteral stent as dictated above
[2024-02-12] MEDS: Phenazopyridine HCL 200 MG TABLET PO (19:15)
== END 2024-02-12 19:30 | disposition home or self-care (01) ==
LOC: HO.ED 02-12 14:37 → HO.SSS 02-12 17:17
PROVIDERS: Physician Assistant Medical; Urology; Emergency Provider Emergency Medicine; Visit Provider Urology
PROC: 0TJB8ZZ Inspection of Bladder, Via Natural or Artificial Opening Endoscopic (ICD-10-PCS; CPT 52005; principal; 2024-02-12 16:10)
DX: N13.2 Hydronephrosis with renal and ureteral calculous obstruction (principal)
CPT/HCPCS: 52356; 36415; 72131; 80053; 81001; 83735; 85025; 93005; 96374; 96375; 96376; 99285; C1726; C1758; C1769; C2617; J1885; J1956; J2003; J2270; J2405; J2704; J3010; J7120; Q9967

== ENCOUNTER → 2024-02-11 18:25 | Outpatient (BNV) | payer OTHER, SELFPAY | PROVIDERS: Emergency Provider Emergency Medicine; Visit Provider Internal Medicine Cardiovascular Disease | DX: N13.2 Hydronephrosis with renal and ureteral calculous obstruction (principal) | CPT/HCPCS: 93010 ==

== ENCOUNTER → 2024-02-11 18:47 | Outpatient (BNV) | payer OTHER, SELFPAY | PROVIDERS: Emergency Provider Emergency Medicine; Visit Provider Urology | DX: N20.1 Calculus of ureter (principal); N13.30 Unspecified hydronephrosis | CPT/HCPCS: 52356; 74420; 99284 ==

== ENCOUNTER 2024-03-04 09:25 | Day surgery (SDC) | payer OTHER, SELFPAY ==
--- NOTE | 2024-03-03 12:13 | P.CONAN_ITS ---
Documented by User: Mónica Mccormack NP 03/03/24 12:13 HPI - Anesthesia Eval Consult details Narrative: 58yo M for Left Cystoscopy, Ureteroroscopy, Retro, Laser with stent exchange s/p cysto, pyelogram 02/2024 with GA-LMA 4 PMFSH Active Problems Active Problems: All Active Problems Hydronephrosis with urinary obstruction due to ureteral calculus (Acute) Left knee sprain (Acute) Left knee pain (Acute) Past Medical History Medical History (Updated 03/04/24 @ 09:57 by Rosalia Boogie RN) Kidney stone on left side Family History Family History Father Lung cancer Mother Lung cancer Family history of problems with anesthesia: No Surgical History Surgical History (Updated 03/04/24 @ 11:27 by Rosalia Boogie RN) Hx of cystoscopy H/O shoulder surgery History of Problems with Anesthesia: No Social History Social History Household Members: Spouse Household Members Other:: duplex Housing: House Are you a primary childcare center director to a significant other at home: No Do you presently have visiting nurse or other home services: No Alcohol intake: current Alcohol intake frequency: a few times a week Alcohol type: beer Comment: PACU Patient Tobacco Use Status: Never used Tobacco Have you been hit, kicked, punched, or otherwise hurt by someone within the past year? If so, by whom?: No Are you DNR?: No Advance Directives: No Advance Directives Information Provided: Yes Recently lost weight without trying: No Nutrition Risks: No Nutritional Risk Meds Allergies Allergy/AdvReac Type Severity Reaction Status Date / Time No Known Allergies Allergy Verified 03/04/24 09:57 [No Known Allergies*] Assessment and Plan Assessment Anesthesia Assessment: Chart Reviewed Final Anesthetic Review Family History of Problems with Anesthesia: No History of Problems with Anesthesia: No Documented by User: Olayinka Gandhi MD 03/04/24 13:21 [facility] Past Medical History Medical History (Updated 03/04/24 @ 09:57 by Rosalia Boogie, RN) Kidney stone on left side Family History Family History Father Lung cancer Mother Lung cancer Surgical History Surgical History (Updated 03/04/24 @ 11:27 by Rosalia Boogie RN) Hx of cystoscopy H/O shoulder surgery Social History Social History Household Members: Spouse Household Members Other:: duplex Housing: House Are you a primary childcare center director to a significant other at home: No Do you presently have visiting nurse or other home services: No Alcohol intake: current Alcohol intake frequency: a few times a week Alcohol type: beer Comment: PACU Patient Tobacco Use Status: Never used Tobacco Have you been hit, kicked, punched, or otherwise hurt by someone within the past year? If so, by whom?: No Are you DNR?: No Advance Directives: No Advance Directives Information Provided: Yes Recently lost weight without trying: No Nutrition Risks: No Nutritional Risk Meds Allergies Allergy/AdvReac Type Severity Reaction Status Date / Time No Known Allergies Allergy Verified 03/04/24 09:57 [No Known Allergies*] Exam Airway Mallampati Class: II TM Dist: <=3cm Neck ROM: Full Loose/Missing/Broken Teeth: No Heart: ok Lungs: ok Assessment and Plan Assessment Anesthesia Assessment: Anesthesia Plan Discussed Final Anesthetic Review NPO: Yes ASA Class: II Final Preanesthetic Review: No Changes in Pt Med Stat, Meds/Allgs Chart Review ed, Consent Obtained/Reviewed and Anes Risks/Benef Reviewed Patient Risk: Low Procedure Risk: Low Anesthetic Plan Anesthetic Plan: GA and Agree w/ Assess. and Plan Disposition: Standard PACU
[2024-03-04] VITALS (7 sets, daily range): BP systolic 128–169; BP diastolic 69–92; PULSE 71–108; RESP 16–18; TEMP 36.1–36.7; O2SAT 95–98; BMI 32.7
[2024-03-04] MEDS: Lactated Ringers 1,000 ML 100 ML IVCONT (11:17)
--- NOTE | 2024-03-04 12:37 | MHC.SHP ---
Pre-Procedural Eval Section A - 24 Hr Update-Section A only Date of Service: 03/04/24 The patient is an INPATIENT: No The patient has been examined within 24 hours of the surgical procedure. The History & Physical has been completed within 30 days and I have reviewed it.: Yes Section B - Complete if H&P > 30 days Chief Complaint: Hydronephrosis with renal and ureteral calculous Allergies: Allergies Allergy/AdvReac Type Severity Reaction Status Date / Time No Known Allergies Allergy Verified 03/04/24 09:57 [No Known Allergies*] Plan Diagnosis/Plan: Unchanged I have reviewed the history and physical and performed a pertinent physical examination on my patient. No changes have occurred unless specified. Plan for Cystoscopy, left ureteroscopy, laser lithotripsy, ureteral stent exchange. Risks discussed included but not limited to, possible need to repeat procedure if stone is not completely fragmented, Irritative voiding symptoms, bladder spasms, urgency, blood in urine. Time Spent With Patient Time: Total time managing care of this patient today ____ minutes.
--- NOTE | 2024-03-04 13:58 | P.OP_ITS ---
Operative Note Operative Note Date of Service: 03/04/24 Narrative: PreOperative Diagnosis:?? Left ureteral stone, left hydronephrosis, status post ureteral stent Post Operative Diagnosis:?? Left ureteral stone, left hydronephrosis, status post ureteral stent Procedure: Cystoscopy, Left ureteroscopy laser lithotripsy stent exchange, size 6 [place] by 22-32 cm Surgeon:?Dr Moe Lopes Anesthesia:? General Indications for procedure: Here for stone fragmentation. Procedure: After informed consent was verified the patient was brought to the operating placed on the OR table in supine position.? General Anesthesia was administered per protocol.? The patient was placed in lithotomy position, prepped and draped in the usual sterile fashion.? Safety pause time-out and side of surgery confirmed.? Antibiotics confirmed. A 22 [place] cystoscope was inserted transurethrally, the bulbous urethra was within normal limits. The prostatic urethra was nonobstructive. The bladder was visualized.? Both ureteric orifices were in normal position. The ureteral stent was curled in the bladder. The distal end of the ureteral stent was grasped with the flexible grasping forceps. The stent was pulled retrograde through the urethra. A guidewire was passed through the stent. The cystoscope was removed, leaving the guidewire in place. The guidewire was used as the safety and was attached to the draping. The semi rigid ureteroscope was passed transurethrally to the level of the stone in the left proximal ureter. Laser lithotripsy of the stone was done using the 365 fiber with a combination of dusting and pulsating settings. There was good fragmentation of the stone. The 0 degree basket was used to remove the stone fragments, which were sent for analysis. The ureteroscope was removed. The cystoscope was passed over the safety guidewire. A? 6 [place] by 22-32 cm stent was placed into the ureter and renal pelvis under a combination of fluoroscopy and direct visualization. The bladder was emptied.? The rigid cystoscope was removed. ? The patient tolerated the procedure well and was brought to the recovery room in stable condition. Complications: None Drains: Ureteral stent as dictated above
[2024-03-13 12:53] LABS: Stone Source LEFT URETERAL STONE
== END 2024-03-04 15:09 | disposition home or self-care (01) ==
PROVIDERS: Visit Provider Urology
PROC: (CPT 52356; principal; 2024-03-04 11:20)
DX: N13.2 Hydronephrosis with renal and ureteral calculous obstruction (principal); Z96.0 Presence of urogenital implants; Z98.890 Other specified postprocedural states
CPT/HCPCS: 52356; 82365; 88300; C1758; C1769; C2617; J0690; J1885; J1940; J2003; J2704; J3010; Q9967

== ENCOUNTER → 2024-03-04 09:25 | Outpatient (BNV) | payer OTHER, SELFPAY | PROVIDERS: Visit Provider Urology | DX: N13.2 Hydronephrosis with renal and ureteral calculous obstruction (principal) | CPT/HCPCS: 52356 ==

== ENCOUNTER 2024-03-13 09:35 | Outpatient (AMB) | payer OTHER, SELFPAY ==
--- NOTE | 2024-03-13 05:33 | A.OFFVIS_ITS ---
Intake Visit Reasons: cysto/stent removal Intake Note: Patient is Present for Cystoscopy/Stent Removal Urology Med: None Antibiotic Allergy: None Blood Thinner: None URO- G Disposable Cystoscope lot: [id number] exp:07/11/2026 Area Operations Director Required: No Accompanied by: Self / Same As Patient Allergies No Known Allergies [No Known Allergies*] Allergy (Verified 03/13/24 09:46) Medication List - Last Reconciled 03/13/24 by Moe Lopes MD acetaminophen ER (8 Hour Pain Reliever) 650 mg PO Q8H valacyclovir (Valtrex) 1,000 mg PO BID 7 days HPI Comments Details: Osbaldo is a 58-year-old gentleman who initially presented to [facility] [facility] on 02/12/2024 for left flank pain he was noted to have a proximal left ureteral stone status post stent on 02/12/2024. Subsequent left ureteroscopy 03/04/2024 with laser lithotripsy of the proximal ureteral stone. Presents for stent removal. Stone analysis is pending. Left ureteral stent removed without difficulty. CT lumbar spine, 02/11/2024 also noted a left lower pole 6 mm stone. Discussed Monitor kidney stone versus treatment options including ESWL left kidney stone. Discussed risks to include but not limited to, blood in the urine, bruising to the skin, kidney hematoma, possible need for another procedure if a stone fragment obstructs the ureter while passing, possible need to repeat procedure if stone is not completely fragmented. Review of Imaging: CT lumbar spine 02/11/2024--Incidentally noted moderate left-sided hydroureteronephrosis with a 5 x 3 mm obstructive ureteric calculus at the level of L4. Additional nonobstructive calculus measuring 6 mm in the lower pole of the left kidney. [facility] Medical History (Updated 03/13/24 @ 11:27 by Moe Lopes MD) Kidney stone on left side Surgical History Hx of cystoscopy H/O shoulder surgery Family History Father Lung cancer Mother Lung cancer Social History Household Members: Spouse Household Members Other:: duplex Housing: House Are you a primary health care consultant to a significant other at home: No Do you presently have visiting nurse or other home services: No Alcohol intake: current Alcohol intake frequency: a few times a week Alcohol type: beer Comment: PACU Patient Tobacco Use Status: Never used Tobacco Review of Systems Const All systems reviewed & are unremarkable except as noted in HPI and below Reports no additional complaints Eyes Reports no additional complaints ENT Reports no additional complaints Card Reports no additional complaints Resp Reports no additional complaints GI Reports no additional complaints Reports as per HPI Musc Reports no additional complaints Skin/Breast Reports system reviewed and no additional complaints, except as documented Neuro Reports no additional complaints Psych Reports no additional complaints Endo Reports no additional complaints Shoaib/Lymph Reports no additional complaints Aller/Immun Reports no additional complaints Office Procedures Cystoscopy Consent Discussed risk and benefit or proposed procedure with the patient. Information consent for procedure given to the patient. Discussed technical aspects, risks, benefits and alternatives in full. Addressed all of the patient's questions and concerns regarding the procedure. The patient demonstrated knowledge and understanding. They wish to proceed with this procedure. Preparation The patient was prepped in the usual manner. A rn pain management was present and in the room. Genitalia was prepped with betadine solution in a sterile manner. Lidocaine Jelly 2% was placed into the urethra and 16Fr flexible Olympus cystoscope was inserted into the meatus after adequate lubrication. Procedure Time out per protocol performed. Bladder Inspection Cystoscopy findings: mild edema ureteral orifice which is expected, distal end of ureteral stent visualized. The grasping forceps were used and the stent was removed without difficulty. 34891-[id number] DISPOSABLE SCOPE URO-G FLEXIBLE SCOPE Procedure code (CPT) selection complete Office Meds lidocaine HCl 2 % mucosal jelly in applicator Performing Provider: Moe Lopes MD Performing Location: [facility] Administered by: AILEEN Pickard on 03/13/24 10:34 Dose Route Admin Location Dispensed Lot Number Expiration Date [facility] Binder Roller 10 mL intra-urethral 10 mL naproxen 500 mg tablet Performing Provider: Moe Lopes MD Performing Location: [facility] Administered by: AILEEN Pickard on 03/13/24 10:34 Dose Route Admin Location Dispensed Lot Number Expiration Date [facility]DC Binder Roller 500 mg PO 1 tab ciprofloxacin HCl 500 mg tablet Performing Provider: Moe Lopes MD Performing Location: [facility] [facility] Administered by: AILEEN Pickard on 03/13/24 10:34 Dose Route Admin Location Dispensed Lot Number Expiration Date NDC Binder Roller 500 mg PO 1 tab Results AMB Urinalysis, Automated UA Leukoctes 70 Jacey/uL Last Edit by AILEEN Pickard on 03/13/24 09:54 UA Nitrite Negative Last Edit by AILEEN Pickard on 03/13/24 09:54 UA Urobilinogen 0.2 mg/dL Last Edit by AILEEN Pickard on 03/13/24 09:5 4 UA Protein 30 mg/dL Last Edit by AILEEN Pickard on 03/13/24 09:54 UA pH 6.0 Last Edit by AILEEN Pickard on 03/13/24 09:54 UA Blood 200 Jan/uL Last Edit by AILEEN Pickard on 03/13/24 09:54 UA Specific Burgin 1.020 Last Edit by AILEEN Pickard on 03/13/24 09: 54 UA Ketone Negative Last Edit by AILEEN Pickard on 03/13/24 09:54 UA Bilirubin 0 mg/dL Last Edit by AILEEN Pickard on 03/13/24 09:54 UA Glucose 0 mg/dL Last Edit by AILEEN Pickard on 03/13/24 09:54 Results Reviewed Results Reviewed: Laboratory Last Values Urine pH (Auto) 6.0 03/13/24 09:48 Specific Burgin (Auto) 1.020 03/13/24 09:48 Urine Protein (Auto) 30 mg/dL 03/13/24 09:48 Glucose (UA)(Auto) 0 mg/dL 03/13/24 09:48 Urine Ketones (Auto) Negative 03/13/24 09:48 Urine Blood (Auto) 200 Jan/uL 03/13/24 09:48 Urine Nitrite (Auto) Negative 03/13/24 09:48 Urine Bilirubin (Auto) 0 mg/dL 03/13/24 09:48 Urine Urobilinogen (Auto) 0.2 mg/dL 03/13/24 09:48 Leukocyte Esterase (Auto) 70 Jacey/uL 03/13/24 09:48 Assessment & Plan Assessment & Plan (1) Kidney stone on left side: Code(s): N20.0 - Calculus of kidney Category: Medical Plan Left ESWL Orders: Orders AMB Urinalysis Automated Today Z13.9 - Encounter for screening, unspecified AMB Cystoscopy Today N13.2 - Hydronephrosis with renal and ureteral calculous obstruction Patient Instructions: The patient had an opportunity to ask questions regarding treatment plan. The patient expressed understanding and agreement with the above treatment plan. The patient is aware they should contact our office by phone for worsening of their current condition or the appearance of new symptoms. Compliance is encouraged with any medications and followup testing that is ordered. It is a privilege to be allowed the opportunity to participate in the urologic care of your patient. If you have any questions or concerns regarding treatment for the above conditions please do not hesitate to contact me. The office telephone contact is [phone]. This note is constructed in part using voice recognition software. While every effort has been made to ensure accuracy utilization supervisor errors may have been included. Yours sincerely, Moe Lopes MD Coding Level of Care Code Est Pt Level 3 (39686) Diagnoses Kidney stone on left side N20.0 CPT Codes Cystoscopy - CPT: 97100-[id number] ([id number])
== END 2024-03-13 11:21 | disposition home or self-care (01) ==
PROVIDERS: Visit Provider Urology
DX: N13.2 Hydronephrosis with renal and ureteral calculous obstruction (principal); Z96.0 Presence of urogenital implants; Z13.9 Encounter for screening, unspecified
CPT/HCPCS: 52000

== ENCOUNTER → 2024-03-13 09:35 | Outpatient (BNVA) | payer OTHER, SELFPAY | PROVIDERS: Visit Provider Urology | DX: N20.0 Calculus of kidney (principal); Z46.6 Encounter for fitting and adjustment of urinary device | CPT/HCPCS: 52000; 81003 ==

== ENCOUNTER 2024-05-07 06:00 | Day surgery (SDC) | payer OTHER, SELFPAY ==
--- NOTE | 2024-05-06 11:45 | P.CONAN_ITS ---
Documented by User: Mónica Mccormack NP 05/06/24 11:46 HPI - Anesthesia Eval Consult details Narrative: 58yo M for Left Lithotripsy ESW s/p cysto, etc 03/2024 with GA-LMA 4 PMFSH Active Problems Active Problems: All Active Problems Kidney stone on left side (Acute) Hydronephrosis with urinary obstruction due to ureteral calculus (Acute) Left knee sprain (Acute) Left knee pain (Acute) Past Medical History Medical History (Updated 05/07/24 @ 06:22 by Jeannette Logan RN) Ganglion cyst Kidney stone on left side Family History Family History Father Lung cancer Mother Lung cancer Family history of problems with anesthesia: No Surgical History Surgical History (Updated 05/07/24 @ 06:22 by Jeannette Logan RN) Hx of tonsillectomy History of appendectomy Hx of cystoscopy H/O shoulder surgery History of Problems with Anesthesia: No Social History Social History Household Members: Spouse Household Members Other:: duplex Housing: House Are you a primary primary care provider to a significant other at home: No Do you presently have visiting nurse or other home services: No Alcohol intake: current Alcohol intake frequency: a few times a week Alcohol type: beer Comment: PACU Patient Tobacco Use Status: Never used Tobacco Use of substances other than those prescribed or required for medical reasons: No Are you DNR?: No Advance Directives: No Advance Directives Information Provided: Yes Nutrition Risks: No Nutritional Risk Poor oral hygiene: No Meds Allergies Allergy/AdvReac Type Severity Reaction Status Date / Time No Known Allergies Allergy Verified 03/13/24 09:46 [No Known Allergies*] Assessment and Plan Assessment Anesthesia Assessment: Chart Reviewed Final Anesthetic Review Family History of Problems with Anesthesia: No History of Problems with Anesthesia: No Documented by User: Olayinka Gandhi MD 05/07/24 07:27 [facility] Past Medical History Medical History (Updated 05/07/24 @ 06:22 by Jeannette Logan, RN) Ganglion cyst Kidney stone on left side Family History Family History Father Lung cancer Mother Lung cancer Surgical History Surgical History (Updated 05/07/24 @ 06:22 by Jeannette Logan, RN) Hx of tonsillectomy History of appendectomy Hx of cystoscopy H/O shoulder surgery History of Problems with Anesthesia: No Social History Social History Household Members: Spouse Household Members Other:: duplex Housing: House Are you a primary primary care provider to a significant other at home: No Do you presently have visiting nurse or other home services: No Alcohol intake: current Alcohol intake frequency: a few times a week Alcohol type: beer Comment: PACU Patient Tobacco Use Status: Never used Tobacco Use of substances other than those prescribed or required for medical reasons: No Are you DNR?: No Advance Directives: No Advance Directives Information Provided: Yes Nutrition Risks: No Nutritional Risk Poor oral hygiene: No Meds Allergies Allergy/AdvReac Type Severity Reaction Status Date / Time No Known Allergies Allergy Verified 03/13/24 09:46 [No Known Allergies*] Exam Airway Mallampati Class: II TM Dist: <=3cm Neck ROM: Full Loose/Missing/Broken Teeth: No Heart: ok Lungs: ok Assessment and Plan Assessment Anesthesia Assessment: Anesthesia Plan Discussed Final Anesthetic Review History of Problems with Anesthesia: No NPO: Yes ASA Class: II Final Preanesthetic Review: No Changes in Pt Med Stat, Meds/Allgs Chart Reviewed, Consent Obtained/Reviewed and Anes Risks/Benef Reviewed Patient Risk: Low Procedure Risk: Low Anesthetic Plan Anesthetic Plan: GA and Agree w/ Assess. and Plan Disposition: Standard PACU
--- NOTE | ~2024-05-07 | XR_ITS ---
EXAMINATION: XR ABDOMEN KUB CLINICAL INDICATION: pre Left ESWL COMPARISON: None available. TECHNIQUE: AP view of the abdomen. FINDINGS: There is no calcifications overlapping the kidney shadows. Calcifications in the lower pelvis likely phlebolith. No intestinal obstruction pattern. Osseous structures are intact. XR/XR KUB IMPRESSION: No nephrolithiasis based upon x-ray. Electronically signed by: Jarrell Sargent MD 05/07/2024 11:53 AM [facility]
[2024-05-07 06:22] VITALS: BMI 33.3
[2024-05-07 06:26] VITALS: BP 133/86; PULSE 83; RESP 16; TEMP 36.7; O2SAT 97
[2024-05-07] MEDS: Lactated Ringers 1,000 ML 100 ML IVCONT (06:41)
--- NOTE | 2024-05-07 07:56 | MHC.SHP ---
Pre-Procedural Eval Section A - 24 Hr Update-Section A only Date of Service: 05/07/24 The patient is an INPATIENT: No The patient has been examined within 24 hours of the surgical procedure. The History & Physical has been completed within 30 days and I have reviewed it.: Yes Section B - Complete if H&P > 30 days Chief Complaint: Calculus of kidney Allergies: Allergies Allergy/AdvReac Type Severity Reaction Status Date / Time No Known Allergies Allergy Verified 03/13/24 09:46 [No Known Allergies*] Plan Diagnosis/Plan: Unchanged I have reviewed the history and physical and performed a pertinent physical examination on my patient. No changes have occurred unless specified. Left ESWL. Discussed risks to include but not limited to, blood in the urine, bruising to the skin, kidney hematoma, possible need for another procedure if a stone fragment obstructs the ureter while passing, possible need to repeat procedure if stone is not completely fragmented. Time Spent With Patient Time: Total time managing care of this patient today ____ minutes.
--- NOTE | 2024-05-07 08:30 | W.PM.OPN ---
Operative Note Operative Note Date of Service: 05/07/24 Narrative: PreOperative Diagnosis:? ? Left Renal stone Post Operative Diagnosis:?Left? Renal stone Procedure:?? Left ESWL Surgeon:?Dr Moe Lopes Anesthesia:? General Indications for procedure: The patient understands there is a risk of bruising or hematoma to the kidney, infection, and stone migration following the procedure and subsequent intervention may be required.? - Imaging 6 x 5 mm stone, lower pole left kidney Procedure: After informed consent was verified the patient was brought to the operating room and placed in a supine position.? Anesthesia was performed per protocol. Safety pause time-out was performed. Imaging was displayed in the room and laterality confirmed. ESWL was performed.?The stone was visualized on ultrasound.? Shockwave lithotripsy was performed, with a maximum rate of 120 hertz. After the first 300 shocks a pause for 2 minutes was completed.? A total of 2500 shocks to a maximum of power of 18 with a maximum rate of 120 hertz.? Some fragmentation of the stone was appreciated. The patient tolerated the procedure well and was transferred to the recovery area upon completion. Complications: None
[2024-05-07 08:44] VITALS: BP 121/77; PULSE 85; RESP 18; TEMP 36.3; O2SAT 96
[2024-05-07 08:49] VITALS: BP 132/78; PULSE 82; RESP 18; O2SAT 96
[2024-05-07 08:54] VITALS: BP 109/64; PULSE 84; RESP 18; O2SAT 96
[2024-05-07 08:55] VITALS: BP 109/79; PULSE 84; RESP 18; O2SAT 96
[2024-05-07 09:10] VITALS: BP 117/77; PULSE 68; RESP 18; O2SAT 96
== END 2024-05-07 09:41 | disposition home or self-care (01) ==
PROVIDERS: Visit Provider Urology
PROC: (CPT 50590; principal; 2024-05-07 07:30)
DX: N20.0 Calculus of kidney (principal); Z98.890 Other specified postprocedural states
CPT/HCPCS: 50590; 74018; J0131; J0690; J1940; J2003; J2704; J3010

== ENCOUNTER → 2024-05-07 06:00 | Outpatient (BNV) | payer OTHER, SELFPAY | PROVIDERS: Visit Provider Radiology Diagnostic Radiology | DX: N20.0 Calculus of kidney (principal) | CPT/HCPCS: 74018 ==

== ENCOUNTER 2024-06-26 15:24 | Outpatient (AMB) | payer OTHER, SELFPAY ==
--- NOTE | 2024-06-26 12:02 | MHC.OFFVIS ---
Intake Visit Reasons: ESWL_ follow up/KUB Intake Note: Patient is Present for ESWL/KUB follow up Urology Med: None Antibiotic Allergy: None Blood Thinner: None Solutions Executive Cloud Sales Required: No Accompanied by: Self / Same As Patient Allergies No Known Allergies [No Known Allergies*] Allergy (Verified 06/26/24 15:48) HPI Comments Details: 06/26/24--s/p Left ESWL for left renal stone on 05/07/24-- Doing well. No fu imaging completed. Did not collect stone fragments. No complaints. Plan 24 hr urine. Renal US. 03/13/24--Osbaldo is a 58-year-old gentleman who initially presented [place] [facility] [place] for left flank pain he was noted to have a proximal left ureteral stone status post stent on 02/12/2024. Subsequent left ureteroscopy 03/04/2024 with laser lithotripsy of the proximal ureteral stone. Presents for stent removal. Stone analysis is pending. Left ureteral stent removed without difficulty. CT lumbar spine, 02/11/2024 also noted a left lower pole 6 mm stone. Discussed Monitor kidney stone versus treatment options including ESWL left kidney stone. Discussed risks to include but not limited to, blood in the urine, bruising to the skin, kidney hematoma, possible need for another procedure if a stone fragment obstructs the ureter while passing, possible need to repeat procedure if stone is not completely fragmented. Review of Imaging: CT lumbar spine 02/11/2024--Incidentally noted moderate left-sided hydroureteronephrosis with a 5 x 3 mm obstructive ureteric calculus at the level of L4. Additional nonobstructive calculus measuring 6 mm in the lower pole of the left kidney. [facility] Medical History Ganglion cyst Kidney stone on left side Surgical History Hx of tonsillectomy History of appendectomy Hx of cystoscopy H/O shoulder surgery Family History Father Lung cancer Mother Lung cancer Social History Household Members: Spouse Household Members Other:: duplex Housing: House Are you a primary career discovery teacher to a significant other at home: No Do you presently have visiting nurse or other home services: No Alcohol intake: current Alcohol intake frequency: a few times a week Alcohol type: beer Comment: PACU Patient Tobacco Use Status: Never used Tobacco Assessment & Plan Assessment & Plan (1) Kidney stone on left side: Code(s): N20.0 - Calculus of kidney Category: Medical Plan s/p Left ESWL for left renal stone on 05/07/24-- Doing well. Did not collect stone fragments. No complaints. Plan 24 hr urine. Renal US. Patient Instructions: The patient had an opportunity to ask questions regarding treatment plan. The patient expressed understanding and agreement with the above treatment plan. The patient is aware they should contact our office by phone for worsening of their current condition or the appearance of new symptoms. Compliance is encouraged with any medications and followup testing that is ordered. It is a privilege to be allowed the opportunity to participate in the urologic care of your patient. If you have any questions or concerns regarding treatment for the above conditions please do not hesitate to contact me. The office telephone contact is [phone]. This note is constructed in part using voice recognition software. While every effort has been made to ensure accuracy restaurant service manager errors may have been included. Yours sincerely, Moe Lopes MD Coding Level of Care Code Global (70408) Diagnoses Kidney stone on left side N20.0
== END 2024-06-26 16:05 | disposition home or self-care (01) ==
LOC: HO.HUSH 15:25
PROVIDERS: Visit Provider Urology
DX: N20.0 Calculus of kidney (principal); Z13.9 Encounter for screening, unspecified
CPT/HCPCS: 99024

== ENCOUNTER → 2024-06-26 15:24 | Outpatient (BNVA) | payer OTHER, SELFPAY | PROVIDERS: Visit Provider Urology | DX: Z87.442 Personal history of urinary calculi (principal); Z98.890 Other specified postprocedural states | CPT/HCPCS: 81003 ==

== ENCOUNTER 2024-09-02 16:11 | Outpatient (REF) | payer OTHER, SELFPAY ==
--- NOTE | ~2024-09-02 | US_ITS ---
EXAMINATION: US KIDNEY BILATERAL HISTORY: N20.0 - Calculus of kidney TECHNIQUE: Real-time grayscale ultrasound imaging of the kidneys was performed and images were reviewed. COMPARISON: There are no prior studies available for comparison. FINDINGS: Right kidney: The right kidney measures 12.0 x 5.2 x 5.0 cm. Renal parenchymal echotexture and thickness are normal. There is a 2.1 x 2.1 x 2.2 cm cyst at the lower pole. There is no hydronephrosis or renal calculi. Left Kidney: The left kidney measures 10.9 x 5.5 x 4.3 cm. Renal parenchymal echotexture and thickness are normal. There are no masses. There is no hydronephrosis or renal calculi. US/US renal BI IMPRESSION: 2.2 cm right renal cyst. Otherwise unremarkable renal ultrasound. Electronically signed by: Hudson Orozco MD 09/03/2024 07:04 AM EDT
== END 2024-09-02 16:12 | disposition home or self-care (01) ==
LOC: HO.US 16:11
PROVIDERS: Visit Provider Urology
DX: N20.0 Calculus of kidney (principal)
CPT/HCPCS: 76775

== ENCOUNTER → 2024-09-02 16:13 | Outpatient (BNV) | payer OTHER, SELFPAY | PROVIDERS: Visit Provider Radiology Diagnostic Radiology | DX: N28.1 Cyst of kidney, acquired (principal) | CPT/HCPCS: 76775 ==

== ENCOUNTER 2024-09-11 13:14 | Outpatient (AMB) | payer OTHER, SELFPAY ==
--- NOTE | 2024-09-11 13:28 | A.OFFVIS_ITS ---
Intake Visit Reasons: 12 week follow up/ Litho/US Intake Note: Patient is present for 12w follow up/Litho/US * 08/03 Litholink comp. * Renal US 09/02 Urology Med: None Antibiotic Allergy: None Blood Thinner: None Account Developer Required: No Accompanied by: Self / Same As Patient Allergies No Known Allergies (No Known Allergies*) Allergy (Verified 09/11/24 13:29) HPI Comments Details: 09/11/24--Discussed 24 hour urine results collected:07/2024 Total volume 1.27 L, Calcium 158 mg; Oxalate 52 mg, Citrate >500 mg, Sodium 188. Instructed on importance of fluid intake. Low oxalate and low sodium diet. 06/26/24--s/p Left ESWL for left renal stone on 05/07/24-- Doing well. No fu imaging completed. Did not collect stone fragments. No complaints. Plan 24 hr urine. Renal US. 03/13/24--Osbaldo is a 58-year-old gentleman who [place] [facility] [place] for left flank pain he was noted to have a proximal left ureteral stone status post stent on 02/12/2024. Subsequent left ureteroscopy 03/04/2024 with laser lithotripsy of the proximal ureteral stone. Presents for stent removal. Stone analysis is pending. Left ureteral stent removed without difficulty. CT lumbar spine, 02/11/2024 also noted a left lower pole 6 mm stone. Discussed Monitor kidney stone versus treatment options including ESWL left kidney stone. Discussed risks to include but not limited to, blood in the urine, bruising to the skin, kidney hematoma, possible need for another procedure if a stone fragment obstructs the ureter while passing, possible need to repeat procedure if stone is not completely fragmented. Review of Imaging: CT lumbar spine 02/11/2024--Incidentally noted moderate left-sided hydroureteronephrosis with a 5 x 3 mm obstructive ureteric calculus at the level of L4. Additional nonobstructive calculus measuring 6 mm in the lower pole of the left kidney. COUNT [facility]CLUDES [facility] Medical History Ganglion cyst Kidney stone on left side Surgical History Hx of tonsillectomy History of appendectomy Hx of cystoscopy H/O shoulder surgery Family History Father Lung cancer Mother Lung cancer Social History Household Members: Spouse Household Members Other:: duplex Housing: House Are you a primary child care giver to a significant other at home: No Do you presently have visiting nurse or other home services: No Alcohol intake: current Alcohol intake frequency: a few times a week Alcohol type: beer Comment: PACU Patient Tobacco Use Status: Never used Tobacco Results Reviewed Results Reviewed: Date of Service: 09/02/24 Procedure(s): US renal BI Accession Number(s): [id number] cc: Moe Lopes MD; Physician,None ~ EXAMINATION: US KIDNEY BILATERAL HISTORY: N20.0 - Calculus of kidney TECHNIQUE: Real-time grayscale ultrasound imaging of the kidneys was performed and images were reviewed. COMPARISON: There are no prior studies available for comparison. FINDINGS: Right kidney: The right kidney measures 12.0 x 5.2 x 5.0 cm. Renal parenchymal echotexture and thickness are normal. There is a 2.1 x 2.1 x 2.2 cm cyst at the lower pole. There is no hydronephrosis or renal calculi. Left Kidney: The left kidney measures 10.9 x 5.5 x 4.3 cm. Renal parenchymal echotexture and thickness are normal. There are no masses. There is no hydronephrosis or renal calculi. US/US renal BI IMPRESSION: 2.2 cm right renal cyst. Otherwise unremarkable renal ultrasound. Assessment & Plan Assessment & Plan (1) Kidney stone on left side: Code(s): N20.0 - Calculus of kidney Category: Medical Plan Kidney stones, cont to monitor, diet modification Patient Instructions: The patient had an opportunity to ask questions regarding treatment plan. The patient expressed understanding and agreement with the above treatment plan. The patient is aware they should contact our office by phone for worsening of their current condition or the appearance of new symptoms. Compliance is enco uraged with any medications and followup testing that is ordered. It is a privilege to be allowed the opportunity to participate in the urologic care of your patient. If you have any questions or concerns regarding treatment for the above conditions please do not hesitate to contact me. The office telephone contact is [phone]. This note is constructed in part using voice recognition software. While every effort has been made to ensure accuracy sas programmer errors may have been included. Yours sincerely, Moe Lopes MD Coding Level of Care Code Est Pt Level 3 (40415) Diagnoses Kidney stone on left side N20.0
== END 2024-09-11 14:05 | disposition home or self-care (01) ==
LOC: HO.HUSH 13:15
PROVIDERS: Visit Provider Urology
DX: N20.0 Calculus of kidney (principal)
CPT/HCPCS: 99213